=== PATIENT | male | born 1950 | race Caucasian/White ===

== ENCOUNTER 2018-10-16 03:29 | Emergency (ER) | payer MEDICARE ==
[~2018-10-16] VITALS: Ht 175.3 cm; Wt 77.2 kg
[2018-10-16] MEDS ORDERED: aspirin 81mg tab.chew PO ONE (03:40)
--- NOTE | 2018-10-16 03:48 | NUR ---
Edilberto: [phone]
[2018-10-16 03:57] LABS: BASOPHILS # (AUTO) 0.1 X10'3 (0-0.2); BASOPHILS % (AUTO) 0.9 % (0-1); EOSINOPHILS # (AUTO) 0.2 X10'3 (0-0.9); EOSINOPHILS % (AUTO) 3.3 % (0-6); HEMATOCRIT 44.6 % (42.0-52.0); HEMOGLOBIN 15.1 g/dl (14.0-17.9); LYMPHOCYTES # (AUTO) 1.8 X10'3 (1.1-4.8); LYMPHOCYTES % (AUTO) 30.2 % (21-51); MEAN CORPUSCULAR HEMOGLOBIN 32.9 PG (27.0-31.0); MEAN CORPUSCULAR VOLUME 96.9 FL (78-98); MEAN PLATELET VOLUME 7.6 FL (7.4-10.4); MONOCYTES # (AUTO) 0.5 X10'3 (0-0.9); MONOCYTES % (AUTO) 8.9 % (2-12); NEUTROPHILS # (AUTO) 3.4 X10'3 (1.8-7.7); NEUTROPHILS % (AUTO) 56.7 % (42-75); PLATELET COUNT 253 X10'3 (140-440); RED CELL DISTRIBUTION WIDTH 13.5 % (11.5-14.5)
[2018-10-16 04:00] LABS: PARTIAL THROMBOPLASTIN TIME 25 SECONDS (22-32); PROTHROMBIN TIME 10.3 SECONDS (9.0-12.0)
[2018-10-16 04:05] LABS: ALANINE AMINOTRANSFERASE 22 U/L (12-78); ALBUMIN 3.8 G/DL (3.4-5.0); ALKALINE PHOSPHATASE 89 IU/L (46-116); ANION GAP 10 (8-16); ASPARTATE AMINO TRANSFERASE 23 U/L (10-37); BILIRUBIN,TOTAL 0.3 MG/DL (0.1-1.0); BLOOD UREA NITROGEN 18 MG/DL (7-18); BUN/CREATININE RATIO 20.7 (5.4-32.0); CHLORIDE 105 MMOL/L (99-107); CREATININE 0.87 MG/DL (0.60-1.10); GLUCOSE 105 MG/DL (70-104); SODIUM 142 MMOL/L (135-145); TOTAL CARBON DIOXIDE 27.4 MMOL/L (24-32); TOTAL PROTEIN 7.5 G/DL (6.4-8.2); eGFR 87 ML/MIN
[2018-10-16 04:13] LABS: POTASSIUM 4.3 MMOL/L (3.5-5.1)
[2018-10-16 06:37] VITALS: BP 123/74
== END 2018-10-16 08:20 | disposition home or self-care (01) ==
LOC: ER 03:31
DX: R07.89 Other chest pain (principal); I25.10 Atherosclerotic heart disease of native coronary artery without angina pectoris; K21.9 Gastro-esophageal reflux disease without esophagitis; F17.210 Nicotine dependence, cigarettes, uncomplicated; Z95.1 Presence of aortocoronary bypass graft
CPT/HCPCS: 36415; 71045; 80053; 83735; 83880; 84484; 85025; 85610; 85730; 93005; 99284